=== PATIENT | female | born 1965 | race Hispanic/Latino ===

== ENCOUNTER → 2018-05-11 | Outpatient (REF) | payer OTHER ==
[~2018-05-11] MED LIST: ABILIFY10 MG PO; AMBIEN10 MG PO; B12-ACTIVE1 MG PO; BUSPIRONE15 MG PO; CELEXA10 MG PO; CELEXA20 M1 PO; CLONAZEPAM0.5 M1 PO; CLORAZ DIPOT PO; CLORAZEPATE DIP15 MG PO; CYANOCOBALAM1000 MCG IJ; HYDROCODONE/ACE1 TAB PO; HYDROXYCHLOR200 MG PO; MAALOX PO; MIRALAX3350 N1 PO; NEURONTIN100 MG PO; PAROXETINE10 MG PO; PROZAC40 MG PO; SEROQUEL50 MG PO; VENOFER20 MG/ML IV
[2018-05-11 08:15] LABS: BARBITURATES NEGATIVE (NEGATIVE); COCAINE NEGATIVE (NEGATIVE); METHADONE NEGATIVE (NEGATIVE); OXCYCODONE POSITIVE (NEGATIVE); TETRAHYDROCANNABIONOL NEGATIVE (NEGATIVE); TRICYLIC ANTIDEPRESSANTS NEGATIVE (NEGATIVE)
== END | disposition home or self-care (01) | DRG 950 ==
LOC: PAIN/MGT 07:47
PROVIDERS: ATTEND Anesthesiology Pain Medicine
DX: Z51.81 Encounter for therapeutic drug level monitoring (principal); Z79.891 Long term (current) use of opiate analgesic